=== PATIENT | female | born 1960 | race Caucasian/White ===

== ENCOUNTER 2017-04-29 10:17 | Emergency (ER) | payer OTHER ==
[~2017-04-29] VITALS: Ht 165.1 cm; Wt 61.2 kg
--- NOTE | ~2017-04-29 | EKG ---
[place] [address] [facility] [place] [address] ELECTROCARDIOGRAM REPORT Name: FAVIOLA ALLEN I [facility] [id number] Admission: 04/29/17 Attend Phys: Discharge: 04/29/17 Date of : 60 Report #: [id number] THIS REPORT FOR: //name// [facility] ED Test Date: 2017-04-29 Test Time: 10:24:06 Pat Name: FAVIOLA ALLEN Department: Room: Gender: F Cartridge Filler: JOSELINE : 1960 Requested By: Tamiko Marr Order Number: [id number] MD: Zenon Tripp Measurements Intervals [place] Rate: 71 P: 39 WI: 170 QRS: -8 QRSD: 81 T: 34 QT: 367 QTc: 399 Interpretive Statements Sinus rhythm No significant abnormality No previous ECG available for comparison Electronically Signed On 04-30-2017 13:46:17 CDT by Zenon Tripp [email or web address] <ELECTRONICALLY SIGNED> By: Zenon Tripp MD, [facility] 04/30/17 1346 1024 1024 Zenon Tripp MD, FAC /EPI
[2017-04-29 10:45] LABS: ABSOLUTE NEUTROPHILS 4.5 thou/uL (1.4-8.2); BASOPHILS 0.7 % (0.0-2.0); EOSINOPHILS 3.7 % (0.0-3.0); LYMPHOCYTES 28.3 % (24.0-44.0); MANUAL DIFF NO; MCHC 34.1 g/dL (28.0-37.0); MCV 96.9 fL (80.0-100.0); PLATELET COUNT 286 thou/uL (150-400); POLYS 59.3 % (36.0-66.0); RBC 4.22 mil/uL (4.20-5.00); RDW 12.8 % (10.5-14.5); WBC 7.6 thou/uL (4.0-11.0)
[2017-04-29 10:54] LABS: ANION GAP 6 mmol/L (7-16); BUN 17 mg/dL (7-18); CALCIUM 9.9 mg/dL (8.5-10.1); CHLORIDE 102 mmol/L (98-107); CO2 29 mmol/L (21-32); CREATININE 0.8 mg/dL (0.6-1.0); GLUCOSE 112 mg/dL (74-106); POTASSIUM 4.3 mmol/L (3.5-5.1); SODIUM 137 mmol/L (136-145)
[2017-04-29 11:03] LABS: TROPONIN-I < 0.04 ng/mL (<0.04-0.07)
[2017-04-29] MEDS ORDERED: ZOFRAN ODT4 MG PO (11:18)
[2017-04-29] MEDS ORDERED: NORCO 5-325 TA1 EACH PO (11:18)
[2017-04-29 11:37] VITALS: BP 131/74
== END 2017-04-29 11:38 | disposition home or self-care (01) ==
LOC: ER 10:17
PROVIDERS: Emergency Medicine
DX: R09.1 Pleurisy (principal); R07.89 Other chest pain; F10.99 Alcohol use, unspecified with unspecified alcohol-induced disorder